=== PATIENT | male | born 1970 | race Caucasian/White ===

== ENCOUNTER 2018-09-18 10:45 | Emergency (ER) | payer SELFPAY ==
--- NOTE | 2018-09-18 11:12 | ED Physician Documentation ---
General Adult - HISTORIAN Historian: patient - HPI Stated Complaint: infected R elbow, L index finger, L lat thigh Chief Complaint: General Adult Onset: days ago Timing: still present Severity: moderate Further Comments: yes (Pt is a 48 yo male with no significatn PMHx, who has c/o mult infections--R forearm, L index finger, L lat thigh. 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 Pt notes that he stayed at a hotel the 2 nights ago and awoke with slight swelling and itching of his R elbow and L index finger. Swelling began to worsen and pt was seen at an urgent care center and was rx'd Bactrim and Doxycycline. Pt has had 3 doses of these meds so far. This morning pt wakend and swelling was much worse extending over about half of his R forearm and over his elbow. Pt has pain with movement of his elbow. Pt's contralateral (L) index finger is infected and has swelling with ecchymosis. Pt also has an abscess on his L lateral thigh. Pt has not had n/v or fever.) - ROS CONST: no problems EYES/ENT: none CVS/RESP: none GI/: none MS/SKIN/LYMPH: other (mult infections) - PAST HX Past History: none Allergies/Adverse Reactions: Allergies Allergy/AdvReac Type Severity Reaction Status Date / Time No Known Allergies Allergy Verified 09/18/18 11:17 Home Medications: Ambulatory Orders Medication Instructions Recorded NK 09/18/18 - SOCIAL HX Smoking History: non-smoker - FAMILY HX Family History: No - REVIEWED ASSESSMENTS Nursing Assessment Reviewed: Yes Vitals Reviewed: Yes Progress - Progress Progress: transfer to [facility]. Dr Neal (Medicine for ID consult). General Adult Physical Exam - PHYSICAL EXAM GENERAL APPEARANCE: no distress EENT: eye inspection normal, pharynx normal NECK: normal inspection, supple RESPIRATORY: no resp distress, chest non-tender, breath sounds normal CVS: reg rate & rhythm, heart sounds normal BACK: normal inspection, no CVA tenderness SKIN: other (cellulitis R forearm and elbow from mid forearm to elbow; also of L index finger; pt has abscess 4 cm L lateral thigh; areas are erythematous, warm and tender.) EXTREMITIES: other (inhibited motion at R elbow) NEURO: oriented X3 Discharge Clincal Impression: cellulits, multiple sites Referrals: Primary Doctor,No [Primary Care Provider] - Condition: Stable Disposition: 02 XFER SHT-TRM HOSP Decision to Admit: NO Decision Time: 11:51
[2018-09-18 12:08] VITALS: BP 147/97
== END 2018-09-18 12:06 | disposition short-term general hospital (02) ==
LOC: ED 10:45
DX: L03.113 Cellulitis of right upper limb (principal); L03.012 Cellulitis of left finger; L02.416 Cutaneous abscess of left lower limb
CPT/HCPCS: 99285